=== PATIENT | male | born 1945 | race Caucasian/White ===

== ENCOUNTER 2020-05-21 20:47 | Inpatient (IN) | payer MEDICARE, OTHER ==
[~2020-05-21] VITALS: Ht 182.9 cm; Wt 86.2 kg
[2020-05-21 22:30] VITALS: BP 151/70
--- NOTE | 2020-05-21 22:30 | NUR ---
GPS ADMISSION NOTE, RECEIVED PATIENT FROM [facility]. PATIENT ARRIVED ON THIS UNIT AT 2230 VIA STRETCHER WITH 2 EMT ESCORTS. PATIENT ADMITTED ON A 5150 HOLD FOR DTS. PER HOLD PATIENT PRESENTED WITH DEPRESSION AND FEELING HOPELESS. PATIENT IS ANXIOUS, GUARDED, HAS RECENTLY STOPPED TAKING HIS MEDICATION. PATIENT IS UNABLE TO PROVIDE A VIABLE SAFE PLAN FOR CARE AT THIS TIME. PATIENT WAS UNABLE TO CONTRACT FOR SAFETY AT THAT TIME. THE 5150 WAS REVIEWED AND THE DOCUMENTATION IN THE 5150 HOLD APPEARS TO REFLECT THE PRESENTATION OF THE PATIENT. UPON FACE TO FACE ASSESSMENT PATIENT IS NOTED TO BEING HYPERVERBAL, DISHEVELED, DISORGANIZED, DEMANDING, UNCOOPERATIVE, AND NEEDS REDIRECTION. PATIENT IS CURRENTLY LYING IN BED AWAKE, HAS NO S/S OR COMPLAINTS OF PAIN. PATIENT IS DISPLAYING NO S/S OF APPARENT DISTRESS. PATIENT BREATHING IS UNLABORED WITH EQUAL RISE AND FALL OF THE CHEST. PATIENT IS ALERT AND ORIENTATED X 1 -2 ON ROOM AIR. PATIENT IS DANISH SPEAKING. PATIENT ASSISTED WITH TURING AND REPOSITIONING Q2HR AND PRN FOR COMFORT AND CIRCULATION. PATIENT HAS NO NEEDS AT THIS TIME. PATIENT DENIES SUICIDE IDEATIONS AND HOMICIDAL IDEATIONS AT THIS TIME. PATIENT REFUSED TO SIGN ANY PAPER WORK. PATIENT ADVISED OF HER HOLD AND PATIENT RIGHTS BOOKLET GIVEN. PATIENT IS UNDER THE PSYCHIATRIC CARE OF DR. JOHANSEN AND THE MEDICAL CARE OF DR QUINONEZ. PATIENT BELONGINGS WERE INVENTORIED AND CHECKED FOR CONTRABAND. ALL CONTRABAND REMOVED AND STORED IN PATIENT HALLWAY LOCKER. PATIENT ADVANCED DIRECTIVES PREFERENCE, IMMUNIZATIONS QUESTIONER, NECESSARY PAPERWORK COMPLETED. PATIENT REFUSED SKIN ASSESSMENT. PATIENT REFUSED INFLUENZA AND PNEUMONIA SHOT. PATIENT ORIENTATED TO ROOM, FLOOR, AND STAFF WITH ALL QUESTIONS ANSWERED. PATIENT EDUCATED ON THE USE OF THE CALL CERRATO. PATIENT BED SIDE RAILS ARE UP X 2 FOR SAFETY. PATIENT BED IS LOCKED, LOW AND I WILL CONTINUE TO MONITOR THIS PATIENT Q 15 MIN WITH THE HELP OF STAFF TO MAINTAIN SAFETY.
[2020-05-21] MEDS ORDERED: ACETAMINOPHEN 325 MG TABLET PO PRN (23:30)
[2020-05-21] MEDS ORDERED: MAGNESIUM HYDROXIDE 30 ML UDC PO PRN (23:30)
[2020-05-21] MEDS ORDERED: TEMAZEPAM 7.5 MG CAPSULE PO PRN (23:30)
[2020-05-21] MEDS ORDERED: MAG HYDROX/AL HYDROX/SIMETH 30 ML UDC PO PRN (23:30)
[2020-05-21] MEDS ORDERED: ALEN70TA80 PO (23:38)
[2020-05-21] MEDS ORDERED: ASPI-1169 PO (23:42)
[2020-05-21] MEDS ORDERED: HYDR25TA4 PO (23:43)
[2020-05-21] MEDS ORDERED: ICOS1CAP PO (23:45)
[2020-05-21] MEDS ORDERED: LEMB5TAB PO (23:46)
[2020-05-21] MEDS ORDERED: METO-357 PO (23:47)
[2020-05-21] MEDS ORDERED: LISI10TA29 PO (23:47)
[2020-05-21] MEDS ORDERED: POLY17PO4 PO (23:53)
[2020-05-21] MEDS ORDERED: SENN-261 PO (23:54)
[2020-05-21] MEDS ORDERED: SIMV-49 PO (23:55)
[2020-05-22] MEDS ORDERED: BLOOD SUGAR DIAGNOSTIC 1 EACH STRIP IN ONE (01:00)
[2020-05-22 08:00] VITALS: BP 162/69
[2020-05-22] MEDS: HYDROCHLOROTHIAZIDE 25 MG TABLET PO SCH (10:20)
[2020-05-22] MEDS: ASPIRIN 81 MG TAB.CHEW PO SCH (10:20)
[2020-05-22] MEDS: LISINOPRIL (10MG) 10 MG TABLET PO SCH (10:21)
[2020-05-22] MEDS: POLYETHYLENE GLYCOL 3350 17 GM POWD.PACK PO SCH (10:21)
[2020-05-22] MEDS: METOPROLOL SUCCINATE 50 MG TAB.SR.24H PO SCH (10:40)
[2020-05-22 11:09] LABS: CALCIUM, SERUM 9.6 mg/dL (8.5-10.1); CARBON DIOXIDE 29 mmol/L (21-32); CHLORIDE 99 mmol/L (98-107); CREATININE 1.4 mg/dL (0.6-1.3); GLUCOSE 88 mg/dL (74-106); POTASSIUM 4.6 mmol/L (3.5-5.1); SODIUM SERUM 137 mmol/L (136-145); UREA NITROGEN, BLOOD 20 mg/dL (7-18)
[2020-05-22 11:10] LABS: BASOPHILS % (AUTO) 0.7 % (0.0-2.0); EOSINOPHILS % (AUTO) 0.6 % (0.0-6.0); HEMATOCRIT 40 % (39-51); HEMOGLOBIN 13.6 g/dL (13.5-17.5); LYMPHOCYTES # (AUTO) 1.2 /CMM (0.8-4.8); LYMPHOCYTES % (AUTO) 18.1 % (20.0-44.0); MEAN CORPUSCULAR HGB CONC 34 g/dl (31.0-36.0); MEAN CORPUSCULAR VOLUME 89 fL (80-96); MONOCYTES # (AUTO) 0.6 /CMM (0.1-1.30); MONOCYTES % (AUTO) 8.7 % (2.0-12.0); NEUTROPHILS # (AUTO) 4.8 /CMM (1.8-8.9); NEUTROPHILS % (AUTO) 71.9 % (43.0-81.0); PLATELET COUNT (AUTO) 215 /CMM (150-450); RED BLOOD CELL COUNT(AUTO) 4.52 MIL/uL (4.5-6.0); WHITE BLOOD COUNT (AUTO) 6.7 K/uL (4.3-11.0)
[2020-05-22 11:12] LABS: CHOLESTEROL 183 mg/dL (<200); HDL CHOLESTEROL 49 mg/dL (40-60); LDL 112 mg/dL (0-99); TRIGLYCERIDES 96 mg/dL (30-150)
--- NOTE | 2020-05-22 15:35 | NUR ---
PT. SEEMS MORE COMFORTABLE AFTER BOTH THAI MD'S IN FOR VISIT.
[2020-05-22 16:00] VITALS: BP 144/65
--- NOTE | 2020-05-22 17:30 | NUR ---
pt. syriac speaking,but indicating discomfort,rn contacted pt's son and he states pt. has had no bm x 10 days.
[2020-05-22] MEDS ORDERED: SIMVASTATIN 20 MG TABLET PO SCH (18:00)
--- NOTE | 2020-05-22 18:00 | NUR ---
dr. perez called and nellie ordered.
--- NOTE | 2020-05-22 18:07 | NUR ---
son brought fish oil med in and bottle sent to pharmacy.
[2020-05-22] MEDS: SENNOSIDES 8.6 MG TABLET PO SCH (18:11)
[2020-05-22] MEDS: VASCEPA 1 GM PO SCH (20:13)
[2020-05-22 20:52] VITALS: BP 121/89
[2020-05-22] MEDS: OLANZAPINE 2.5 MG TABLET PO SCH (22:27)
--- NOTE | 2020-05-23 06:38 | NUR ---
GPS RN CLOSING NOTES: PATIENT AWAKE, A/O X1-2. PATIENT SLEPT 9 HR THIS SHIFT. NO BEHAVIORAL ISSUES THIS SHIFT. MEDICATION COMPLIANT, NO PRN MEDS GIVEN THIS SHIFT. NO S/S OF DISTRESS. RESPIRATION EVEN AND UNLABORED WITH EQUAL RISE AND FALL OF THE CHEST ON ROOM AIR. SAFETY PRECAUTION MAINTAINED, BED IN LOWEST POSITION AND LOCKED. Q15 MINUTES SAFETY ROUND CONTINUED. ALL PATIENT CARE NEEDS MET ANTICIPATED. WILL CONTINUE TO MONITOR PATIENT FOR MOOD, BEHAVIOR AND SAFETY AND ENDORSE TO AM SHIFT.
[2020-05-23 08:00] VITALS: BP 155/79
[2020-05-23] MEDS: POLYETHYLENE GLYCOL 3350 17 GM POWD.PACK PO SCH (09:08)
[2020-05-23] MEDS: HYDROCHLOROTHIAZIDE 25 MG TABLET PO SCH (09:08)
[2020-05-23] MEDS: ASPIRIN 81 MG TAB.CHEW PO SCH (09:09)
[2020-05-23] MEDS: METOPROLOL SUCCINATE 50 MG TAB.SR.24H PO SCH (09:10)
[2020-05-23] MEDS: LISINOPRIL (10MG) 10 MG TABLET PO SCH (09:10)
[2020-05-23] MEDS: VASCEPA 1 GM PO SCH ×2 (09:10→17:45)
[2020-05-23] MEDS: ALENDRONATE 70 MG TABLET PO SCH (09:10)
[2020-05-23] MEDS: AMLODIPINE BESYLATE 5 MG TABLET PO SCH (10:56)
[2020-05-23 16:00] VITALS: BP 131/58
[2020-05-23] MEDS: SENNOSIDES 8.6 MG TABLET PO SCH (17:45)
[2020-05-23 20:00] VITALS: BP 100/52
--- NOTE | 2020-05-23 20:00 | NUR ---
GPS RN OPENING NOTE: PATIENT AWAKE, A/O X2. SITTING IN CHAIR OUTSIDE ROOM IN HALLWAY. NO S/S OF DISTRESS. RESPIRATION EVEN AND UNLABORED WITH EQUAL RISE AND FALL OF THE CHEST ON ROOM AIR. SAFETY PRECAUTION IN PLACE, BED IN LOWEST POSITION AND LOCKED. Q15 MINUTES SAFETY ROUND PER PROTOCOL. WILL CONTINUE TO MONITOR PATIENT FOR MOOD, BEHAVIOR AND SAFETY. PT REPORTED HAVING YELLOWISH BROWN BM DURING DAY SHIFT PER REPORT. DENIES ABD PAIN. DENIES SI/HI.
[2020-05-23] MEDS: OLANZAPINE 2.5 MG TABLET PO SCH (20:55)
[2020-05-23] MEDS: ATORVASTATIN 10 MG TABLET PO SCH (21:31)
--- NOTE | 2020-05-23 22:30 | NUR ---
SPOKE WITH PATIENTS CARRIE CRISOSTOMO PHONE [phone]. UPDATED ON FATHERS CONDITION. QUESTIONS CONCERNS ADDRESSED. HE IS REQUESTING THAT MD CALL HIM FOR UPDATE WHEN THEY DO ROUNDS. PHONE GIVEN TO PATIENT AND PT SPOKE WITH SON FOR 15 MINUTES.
--- NOTE | 2020-05-24 07:24 | NUR ---
RN NOTES PATIENT IS AWAKE AND VERBALLY RESPONSIVE. PATIENT IS MONGOLIAN-SPEAKING, UNDERSTANDS VERY LITTLE [place]. SEEN SITTING IN CHAIR OUTSIDE ROOM IN HALLWAY, ABLE TO AMBULATE. NO S/S OF DISTRESS. BREATHING EVEN AND UNLABORED, TOLERATING ROOM AIR. SAFETY PRECAUTIONS IN PLACE: BED IN LOWEST POSITION AND LOCKED, SR UP X2, CALL LIGHT W/IN REACH. WILL CONTINUE TO MONITOR.
[2020-05-24 08:00] VITALS: BP 133/61
[2020-05-24] MEDS: ASPIRIN 81 MG TAB.CHEW PO SCH (08:36)
[2020-05-24] MEDS: HYDROCHLOROTHIAZIDE 25 MG TABLET PO SCH (08:36)
[2020-05-24] MEDS: POLYETHYLENE GLYCOL 3350 17 GM POWD.PACK PO SCH (08:37)
[2020-05-24] MEDS: AMLODIPINE BESYLATE 5 MG TABLET PO SCH (08:37)
[2020-05-24] MEDS: METOPROLOL SUCCINATE 50 MG TAB.SR.24H PO SCH (08:37)
[2020-05-24] MEDS: LISINOPRIL (10MG) 10 MG TABLET PO SCH (08:37)
[2020-05-24] MEDS: VASCEPA 1 GM PO SCH ×2 (08:47→16:49)
--- NOTE | 2020-05-24 15:51 | NUR ---
Family Contact: There is no contact information for the pts family members at this time.
[2020-05-24 16:00] VITALS: BP 130/55
--- NOTE | 2020-05-24 16:10 | NUR ---
Family Contact: SW called the pts home number ([phone]) and pts son, Cliff ([phone]), answered the phone and stated that the pt can return home at the time of discharge if he is stable.
--- NOTE | 2020-05-24 16:21 | NUR ---
Initial Discharge Plan: Pt currently resides in his home with his located at [address] [place] [address]; ([phone]). Per pt, he would like to return to his home. LATOYA spoke with the pts son, Cliff ([phone]), who stated that the pt can return. LATOYA will work with the pt and the pts MD regarding appropriate discharge planning. LATOYA will form a safe and proper discharge.
[2020-05-24] MEDS: SENNOSIDES 8.6 MG TABLET PO SCH (17:08)
[2020-05-24] MEDS: LORAZEPAM 0.5 MG TABLET PO PRN (17:09)
--- NOTE | 2020-05-24 19:15 | NUR ---
RN NOTES PATIENT CURRENTLY IN BED RESTING, ABLE TO BE AWAKENED. BREATHING EVEN AND UNLABORED, TOLERATING ROOM AIR, NOT IN ACUTE DISTRESS. CHARGE NURSE TRANSLATED EARLIER FOR PATIENT; NOTED W/ ANXIETY, PRN ATIVAN PROVIDED AND TAKEN BY PATIENT. NO COMPLAINT OF ABD PAIN/DISCOMFORT. DENIES SI/HI. SAFETY PRECS MAINTAINED. ENDORSED TO DIRECTOR SPECIALTY RN FOR YOSELIN.
[2020-05-24 20:00] VITALS: BP 131/82
[2020-05-24] MEDS: ATORVASTATIN 10 MG TABLET PO SCH (21:17)
[2020-05-24] MEDS: OLANZAPINE 2.5 MG TABLET PO SCH (21:17)
[2020-05-25 08:00] VITALS: BP 153/68
[2020-05-25] MEDS: VASCEPA 1 GM PO SCH ×2 (08:34→17:18)
[2020-05-25] MEDS: ASPIRIN 81 MG TAB.CHEW PO SCH (08:34)
[2020-05-25] MEDS: HYDROCHLOROTHIAZIDE 25 MG TABLET PO SCH (08:34)
[2020-05-25] MEDS: LISINOPRIL (10MG) 10 MG TABLET PO SCH (08:35)
[2020-05-25] MEDS: METOPROLOL SUCCINATE 50 MG TAB.SR.24H PO SCH (08:35)
[2020-05-25] MEDS: POLYETHYLENE GLYCOL 3350 17 GM POWD.PACK PO SCH (08:35)
[2020-05-25] MEDS: AMLODIPINE BESYLATE 5 MG TABLET PO SCH (08:35)
[2020-05-25] MEDS: LORAZEPAM 0.5 MG TABLET PO PRN (13:25)
[2020-05-25 16:00] VITALS: BP 117/64
--- NOTE | 2020-05-25 16:15 | NUR ---
GPS MASTER LAY OUT SPECIALIST: NOTES PT TAKEN TO SHOWER PER SON'S REQUEST, BUT PT REFUSED. CN AWARE.
[2020-05-25 16:54] LABS: CALCIUM, SERUM 9.4 mg/dL (8.5-10.1); CREATININE 1.2 mg/dL (0.6-1.3); POTASSIUM 4.8 mmol/L (3.5-5.1)
[2020-05-25] MEDS: SENNOSIDES 8.6 MG TABLET PO SCH (17:17)
--- NOTE | 2020-05-25 19:46 | NUR ---
RN NOTES, PATIENT IN BED ASLEEP BUT AROUSES TO VERBAL STIMULI, NO SOB/DISTRESS NOTED, NO DISRUPTIVE BEHAVIOR NOTED, WILL CONTINUE TO MONITOR CLOSELY.
[2020-05-25 20:24] VITALS: BP 108/55
[2020-05-25] MEDS: OLANZAPINE 2.5 MG TABLET PO SCH (21:12)
[2020-05-25] MEDS: ATORVASTATIN 10 MG TABLET PO SCH (21:12)
--- NOTE | 2020-05-26 06:46 | NUR ---
RN NOTES, PATIENT IN BED ASLEEP BUT AROUSES TO VERBAL STIMULI, NO SOB/DISTRESS NOTED, NO DISRUPTIVE BEHAVIOR NOTED THROUGHOUT THE NIGHT, ADEQUATE HOURS OF SLEEP, WILL ENDORSE CONTINUITY OF CARE TO ONCOMING NURSE.
[2020-05-26 08:00] VITALS: BP 123/90
[2020-05-26] MEDS: HYDROCHLOROTHIAZIDE 25 MG TABLET PO SCH (09:11)
[2020-05-26] MEDS: VASCEPA 1 GM PO SCH ×2 (09:11→17:23)
[2020-05-26] MEDS: LISINOPRIL (10MG) 10 MG TABLET PO SCH (09:12)
[2020-05-26] MEDS: AMLODIPINE BESYLATE 5 MG TABLET PO SCH (09:12)
[2020-05-26] MEDS: METOPROLOL SUCCINATE 50 MG TAB.SR.24H PO SCH (09:12)
[2020-05-26] MEDS: ASPIRIN 81 MG TAB.CHEW PO SCH (09:12)
[2020-05-26] MEDS: POLYETHYLENE GLYCOL 3350 17 GM POWD.PACK PO SCH (09:12)
--- NOTE | 2020-05-26 10:48 | NUR ---
SNF Referral: LATOYA faxed a referral to [facility] with attn to Susan to the fax number: [phone].
--- NOTE | 2020-05-26 12:54 | NUR ---
SNF Contact: Susan ([phone]) from [facility] contacted the SW and stated that the pt was accepted to their facility at the time of discharge.
[2020-05-26 16:00] VITALS: BP 112/59
[2020-05-26] MEDS: SENNOSIDES 8.6 MG TABLET PO SCH (17:23)
[2020-05-26 19:58] VITALS: BP 106/45
[2020-05-26] MEDS ORDERED: OLANZAPINE 2.5 MG TABLET PO SCH (22:00)
[2020-05-26] MEDS ORDERED: ATORVASTATIN 10 MG TABLET ONE (22:04)
[2020-05-26] MEDS: ATORVASTATIN 10 MG TABLET PO SCH (22:06)
--- NOTE | 2020-05-26 22:10 | NUR ---
GPS RN NOTES: AT 2199 THIS NURSE CONTACTED [facility] TO ITEM REPAIR MANAGER LIPITOR 10MG 2TABS/20MG PO ORDERED D/T UNAVAILABILITY OF SUPPLY IN GPS OMNICELL. MEDICATION PICKED UP FROM [facility] AND ADMINISTERED ORDERED AT 2205.
[2020-05-27 08:00] VITALS: BP 144/62
[2020-05-27] MEDS: ASPIRIN 81 MG TAB.CHEW PO SCH (08:49)
[2020-05-27] MEDS: POLYETHYLENE GLYCOL 3350 17 GM POWD.PACK PO SCH (08:49)
[2020-05-27] MEDS: HYDROCHLOROTHIAZIDE 25 MG TABLET PO SCH (08:50)
[2020-05-27] MEDS: AMLODIPINE BESYLATE 5 MG TABLET PO SCH (08:50)
[2020-05-27] MEDS: METOPROLOL SUCCINATE 50 MG TAB.SR.24H PO SCH (08:50)
[2020-05-27] MEDS: LISINOPRIL (10MG) 10 MG TABLET PO SCH (08:50)
[2020-05-27] MEDS: VASCEPA 1 GM PO SCH ×2 (08:52→16:31)
[2020-05-27] MEDS: LORAZEPAM 0.5 MG TABLET PO PRN ×3 (10:21→21:32)
[2020-05-27 16:00] VITALS: BP 124/54
[2020-05-27] MEDS: SENNOSIDES 8.6 MG TABLET PO SCH (16:28)
[2020-05-27] MEDS: CLOPIDOGREL BISULFATE 75 MG TABLET PO SCH (16:28)
--- NOTE | 2020-05-27 18:07 | NUR ---
PT AMBULATING IN AND OUT OF HIS ROOM.DENIES ANY HEADACHE.NO SI/HI NOTED.WILL CONTINUE TO MONITOR
[2020-05-27 20:28] VITALS: BP 91/39
[2020-05-27] MEDS: ATORVASTATIN 10 MG TABLET PO SCH (21:32)
[2020-05-27] MEDS: OLANZAPINE 2.5 MG TABLET PO SCH (21:32)
[2020-05-28 08:00] VITALS: BP 138/59
[2020-05-28] MEDS: POLYETHYLENE GLYCOL 3350 17 GM POWD.PACK PO SCH (08:38)
[2020-05-28] MEDS: CLOPIDOGREL BISULFATE 75 MG TABLET PO SCH (08:39)
[2020-05-28] MEDS: HYDROCHLOROTHIAZIDE 25 MG TABLET PO SCH (08:39)
[2020-05-28] MEDS: VASCEPA 1 GM PO SCH ×2 (08:39→17:03)
[2020-05-28] MEDS: ASPIRIN 81 MG TAB.CHEW PO SCH (08:39)
[2020-05-28] MEDS: METOPROLOL SUCCINATE 50 MG TAB.SR.24H PO SCH (08:40)
[2020-05-28] MEDS: AMLODIPINE BESYLATE 5 MG TABLET PO SCH (08:40)
[2020-05-28] MEDS: LISINOPRIL (10MG) 10 MG TABLET PO SCH (08:40)
[2020-05-28] MEDS: DIVALPROEX SODIUM 125 MG CAP.SPRINK PO SCH ×2 (13:43→21:50)
--- NOTE | 2020-05-28 14:24 | NUR ---
Family Contact: SW called the pts son, Cliff ([phone]), and informed him that the pt does not have a discharge date as of right now but the SW did secure placement at [facility]. Pts son stated that he will speak with his mother and will determine whether or not the pt will go home or to the SNF. SW stated that she would call him back on Sunday.
[2020-05-28] MEDS: LORAZEPAM 0.5 MG TABLET PO PRN ×2 (15:21→21:50)
[2020-05-28 16:00] VITALS: BP 92/94
[2020-05-28] MEDS: SENNOSIDES 8.6 MG TABLET PO SCH (17:03)
[2020-05-28 20:20] VITALS: BP 123/49
[2020-05-28] MEDS: ATORVASTATIN 10 MG TABLET PO SCH (21:50)
[2020-05-28] MEDS: OLANZAPINE 2.5 MG TABLET PO SCH (21:50)
[2020-05-29 08:00] VITALS: BP 146/65
--- NOTE | 2020-05-29 08:05 | NUR ---
PT RECEIVED AMBULATING OUT OF BED, ESTONIAN SPEAKING. PT IS CONFUSED TO WHY HE IS HERE. PT GIVEN EXPLANATION, DOES NOT APPEAR TO BE IN DISTRESS. WILL CONTINUE T0 MONITOR
[2020-05-29] MEDS: CLOPIDOGREL BISULFATE 75 MG TABLET PO SCH (08:52)
[2020-05-29] MEDS: ASPIRIN 81 MG TAB.CHEW PO SCH (08:52)
[2020-05-29] MEDS: DIVALPROEX SODIUM 125 MG CAP.SPRINK PO SCH ×2 (08:52→21:30)
[2020-05-29] MEDS: HYDROCHLOROTHIAZIDE 25 MG TABLET PO SCH (08:53)
[2020-05-29] MEDS: POLYETHYLENE GLYCOL 3350 17 GM POWD.PACK PO SCH (08:53)
[2020-05-29] MEDS: LISINOPRIL (10MG) 10 MG TABLET PO SCH (08:53)
[2020-05-29] MEDS: AMLODIPINE BESYLATE 5 MG TABLET PO SCH (08:53)
[2020-05-29] MEDS: VASCEPA 1 GM PO SCH ×2 (08:57→18:07)
[2020-05-29] MEDS: METOPROLOL SUCCINATE 50 MG TAB.SR.24H PO SCH (09:00)
--- NOTE | 2020-05-29 10:05 | NUR ---
0900 METOPROLOL NON-ADMIN. MISSING FROM [facility], PHARMACY CONTACTED, TO REFILL LATER. OTHER AM BP MEDS GIVEN
[2020-05-29] MEDS: LORAZEPAM 0.5 MG TABLET PO PRN (10:43)
[2020-05-29 16:00] VITALS: BP 105/51
[2020-05-29] MEDS: SENNOSIDES 8.6 MG TABLET PO SCH (18:08)
[2020-05-29 20:57] VITALS: BP 122/55
[2020-05-29] MEDS: ATORVASTATIN 10 MG TABLET PO SCH (21:29)
[2020-05-29] MEDS: OLANZAPINE 2.5 MG TABLET PO SCH (21:31)
[2020-05-30] MEDS: ALENDRONATE 70 MG TABLET PO SCH (07:44)
[2020-05-30 08:00] VITALS: BP 155/63
[2020-05-30] MEDS: ASPIRIN 81 MG TAB.CHEW PO SCH (08:14)
[2020-05-30] MEDS: POLYETHYLENE GLYCOL 3350 17 GM POWD.PACK PO SCH (08:14)
[2020-05-30] MEDS: AMLODIPINE BESYLATE 5 MG TABLET PO SCH (08:15)
[2020-05-30] MEDS: HYDROCHLOROTHIAZIDE 25 MG TABLET PO SCH (08:15)
[2020-05-30] MEDS: LISINOPRIL (10MG) 10 MG TABLET PO SCH (08:15)
[2020-05-30] MEDS: VENLAFAXINE XR 37.5 MG CAP.SR.24H PO SCH (08:15)
[2020-05-30] MEDS: DIVALPROEX SODIUM 125 MG CAP.SPRINK PO SCH ×2 (08:15→21:37)
[2020-05-30] MEDS: CLOPIDOGREL BISULFATE 75 MG TABLET PO SCH (08:16)
[2020-05-30] MEDS: VASCEPA 1 GM PO SCH ×2 (08:20→16:18)
[2020-05-30] MEDS: METOPROLOL SUCCINATE 50 MG TAB.SR.24H PO SCH (08:25)
[2020-05-30 16:00] VITALS: BP 106/42
[2020-05-30] MEDS: SENNOSIDES 8.6 MG TABLET PO SCH (17:05)
[2020-05-30 20:00] VITALS: BP 103/44
[2020-05-30] MEDS: OLANZAPINE 2.5 MG TABLET PO SCH (21:37)
[2020-05-30] MEDS ORDERED: ATORVASTATIN 10 MG TABLET ONE (22:11)
[2020-05-30] MEDS: ATORVASTATIN 10 MG TABLET PO SCH (22:14)
[2020-05-31 08:00] VITALS: BP_SYST 128; BP_SYST 139; BP_DIAS 57; BP_DIAS 80
[2020-05-31] MEDS: DIVALPROEX SODIUM 125 MG CAP.SPRINK PO SCH ×2 (08:37→21:20)
[2020-05-31] MEDS: ASPIRIN 81 MG TAB.CHEW PO SCH (08:37)
[2020-05-31] MEDS: VENLAFAXINE XR 37.5 MG CAP.SR.24H PO SCH (08:37)
[2020-05-31] MEDS: POLYETHYLENE GLYCOL 3350 17 GM POWD.PACK PO SCH (08:37)
[2020-05-31] MEDS: CLOPIDOGREL BISULFATE 75 MG TABLET PO SCH (08:37)
[2020-05-31] MEDS: METOPROLOL SUCCINATE 50 MG TAB.SR.24H PO SCH (08:38)
[2020-05-31] MEDS: LISINOPRIL (10MG) 10 MG TABLET PO SCH (08:38)
[2020-05-31] MEDS: HYDROCHLOROTHIAZIDE 25 MG TABLET PO SCH (08:43)
[2020-05-31] MEDS: VASCEPA 1 GM PO SCH ×2 (08:44→17:17)
[2020-05-31] MEDS: AMLODIPINE BESYLATE 5 MG TABLET PO SCH (08:44)
--- NOTE | 2020-05-31 09:00 | NUR ---
PT ANXIOUS AT TIMES DELUSIONAL REGARDING BOWELS AND BMS, PT HAVING REGULAR BMS PO INTAKE IS FAIR AT TIMES, CONFUSED. MED COMPLIANT
[2020-05-31] MEDS: LORAZEPAM 0.5 MG TABLET PO PRN (14:49)
--- NOTE | 2020-05-31 14:52 | NUR ---
RN NOTE- ANXIOUSNESS PACING AND INTRUSIVENESS CONTINUES. ATIVAN 0.5 MG GIVEN
[2020-05-31] MEDS: SENNOSIDES 8.6 MG TABLET PO SCH (17:17)
[2020-05-31 20:02] VITALS: BP 108/54
[2020-05-31] MEDS: ATORVASTATIN 10 MG TABLET PO SCH (21:22)
[2020-05-31] MEDS: OLANZAPINE 2.5 MG TABLET PO SCH (21:22)
[2020-05-31] MEDS: DONEPEZIL 5 MG TABLET PO SCH (22:31)
[2020-06-01 06:49] LABS: BASOPHILS % (AUTO) 0.8 % (0.0-2.0); EOSINOPHILS % (AUTO) 1.1 % (0.0-6.0); HEMATOCRIT 38 % (39-51); HEMOGLOBIN 13.2 g/dL (13.5-17.5); LYMPHOCYTES # (AUTO) 1.7 /CMM (0.8-4.8); LYMPHOCYTES % (AUTO) 31.7 % (20.0-44.0); MEAN CORPUSCULAR HGB CONC 34 g/dl (31.0-36.0); MEAN CORPUSCULAR VOLUME 87 fL (80-96); MONOCYTES # (AUTO) 0.6 /CMM (0.1-1.30); MONOCYTES % (AUTO) 10.5 % (2.0-12.0); NEUTROPHILS # (AUTO) 3.1 /CMM (1.8-8.9); NEUTROPHILS % (AUTO) 55.9 % (43.0-81.0); PLATELET COUNT (AUTO) 250 /CMM (150-450); RED BLOOD CELL COUNT(AUTO) 4.41 MIL/uL (4.5-6.0); WHITE BLOOD COUNT (AUTO) 5.5 K/uL (4.3-11.0)
[2020-06-01 08:00] VITALS: BP 134/75
[2020-06-01 08:12] LABS: BILIRUBIN,TOTAL 0.8 mg/dL (0.2-1.0); CALCIUM, SERUM 9.7 mg/dL (8.5-10.1); CREATININE 1.3 mg/dL (0.6-1.3); POTASSIUM 4.3 mmol/L (3.5-5.1); TOTAL PROTEIN, SERUM 7.7 g/dL (6.4-8.2)
[2020-06-01] MEDS: DIVALPROEX SODIUM 125 MG CAP.SPRINK PO SCH ×2 (09:23→21:04)
[2020-06-01] MEDS: AMLODIPINE BESYLATE 5 MG TABLET PO SCH (09:24)
[2020-06-01] MEDS: METOPROLOL SUCCINATE 50 MG TAB.SR.24H PO SCH (09:24)
[2020-06-01] MEDS: CLOPIDOGREL BISULFATE 75 MG TABLET PO SCH (09:24)
[2020-06-01] MEDS: HYDROCHLOROTHIAZIDE 25 MG TABLET PO SCH (09:25)
[2020-06-01] MEDS: ASPIRIN 81 MG TAB.CHEW PO SCH (09:25)
[2020-06-01] MEDS: VENLAFAXINE XR 37.5 MG CAP.SR.24H PO SCH (09:25)
[2020-06-01] MEDS: POLYETHYLENE GLYCOL 3350 17 GM POWD.PACK PO SCH (09:26)
[2020-06-01] MEDS: VASCEPA 1 GM PO SCH ×2 (09:30→16:27)
[2020-06-01] MEDS: LISINOPRIL (10MG) 10 MG TABLET PO SCH (09:37)
--- NOTE | 2020-06-01 13:30 | NUR ---
48 yr old female discharged [facility] in stable condition. Compliant with medicatios/cooperative with tx plan. Pt denies SI/HI and is instructed to go the nearest ER if developing SI/HI. Behaviour improved, psychiatric tx plan met, medical tx plan deferred to continual monitoring. Pt educated regarding after care plan and copy provided. Pt belongings returned. medications reconciles with psychiatrist and internal med. doctors Pt left the unit at 1330 via trasport Addendum: 06/01/20 at 1417 by DEANA GALLEGOS RN Amended: Links added. Addendum: 06/01/20 at 1421 by DEANA GALLEGOS RN accidentally documented on wrong pt-Error disregard
--- NOTE | 2020-06-01 13:58 | NUR ---
Family Contact: SW called the pts son, Cliff ([phone]), and left a voicemail that stated that the SW would like to speak about pts discharge plan.
[2020-06-01 16:00] VITALS: BP 135/65
[2020-06-01] MEDS: SENNOSIDES 8.6 MG TABLET PO SCH (16:28)
[2020-06-01 20:55] VITALS: BP 93/46
[2020-06-01] MEDS: OLANZAPINE 2.5 MG TABLET PO SCH (21:03)
[2020-06-01] MEDS: ATORVASTATIN 10 MG TABLET PO SCH (21:04)
[2020-06-01] MEDS: DONEPEZIL 5 MG TABLET PO SCH (21:04)
[2020-06-02 08:00] VITALS: BP 154/73
[2020-06-02] MEDS: VENLAFAXINE XR 37.5 MG CAP.SR.24H PO SCH (09:28)
[2020-06-02] MEDS: POLYETHYLENE GLYCOL 3350 17 GM POWD.PACK PO SCH (09:28)
[2020-06-02] MEDS: ASPIRIN 81 MG TAB.CHEW PO SCH (09:29)
[2020-06-02] MEDS: LORAZEPAM 0.5 MG TABLET PO PRN (09:29)
--- NOTE | 2020-06-02 09:30 | NUR ---
RN NOTE PATIENT ANXIOUS PACING IN THE HALLWAY ATIVAN 0.5 MG GIVEN, WILL CONTINUE MONITORING
[2020-06-02] MEDS: CLOPIDOGREL BISULFATE 75 MG TABLET PO SCH (09:31)
[2020-06-02] MEDS: DIVALPROEX SODIUM 125 MG CAP.SPRINK PO SCH ×2 (09:31→21:11)
[2020-06-02] MEDS: AMLODIPINE BESYLATE 5 MG TABLET PO SCH (09:32)
[2020-06-02] MEDS: LISINOPRIL (10MG) 10 MG TABLET PO SCH (09:33)
[2020-06-02] MEDS: METOPROLOL SUCCINATE 50 MG TAB.SR.24H PO SCH (09:33)
[2020-06-02] MEDS: HYDROCHLOROTHIAZIDE 25 MG TABLET PO SCH (09:34)
[2020-06-02] MEDS: VASCEPA 1 GM PO SCH ×2 (09:35→16:56)
--- NOTE | 2020-06-02 14:29 | NUR ---
Family Contact: LATOYA called the pts son, Cliff ([phone]), and he stated that the family would want the pt to return to their home. LATOYA stated that she will inform the MD.
[2020-06-02 16:00] VITALS: BP 121/53
[2020-06-02] MEDS: SENNOSIDES 8.6 MG TABLET PO SCH (17:00)
[2020-06-02 20:51] VITALS: BP 133/61
[2020-06-02] MEDS: ATORVASTATIN 10 MG TABLET PO SCH (21:11)
[2020-06-02] MEDS: DONEPEZIL 5 MG TABLET PO SCH (21:11)
[2020-06-02] MEDS: OLANZAPINE 2.5 MG TABLET PO SCH (21:12)
[2020-06-03 08:00] VITALS: BP 133/53
[2020-06-03] MEDS: CLOPIDOGREL BISULFATE 75 MG TABLET PO SCH (08:30)
[2020-06-03] MEDS: ASPIRIN 81 MG TAB.CHEW PO SCH (08:30)
[2020-06-03] MEDS: AMLODIPINE BESYLATE 5 MG TABLET PO SCH (08:31)
[2020-06-03] MEDS: DIVALPROEX SODIUM 125 MG CAP.SPRINK PO SCH ×2 (08:31→21:46)
[2020-06-03] MEDS: LISINOPRIL (10MG) 10 MG TABLET PO SCH (08:31)
[2020-06-03] MEDS: POLYETHYLENE GLYCOL 3350 17 GM POWD.PACK PO SCH (08:32)
[2020-06-03] MEDS: METOPROLOL SUCCINATE 50 MG TAB.SR.24H PO SCH (08:32)
[2020-06-03] MEDS: HYDROCHLOROTHIAZIDE 25 MG TABLET PO SCH (08:32)
[2020-06-03] MEDS: VENLAFAXINE XR 37.5 MG CAP.SR.24H PO SCH (08:32)
[2020-06-03] MEDS: VASCEPA 1 GM PO SCH ×2 (08:35→17:02)
--- NOTE | 2020-06-03 14:06 | NUR ---
Family Contact: SW called the pts son, Cliff ([phone]), and left a voicemail that stated that the SW would like to speak about pts discharge plan.
[2020-06-03 16:00] VITALS: BP 122/53
--- NOTE | 2020-06-03 16:23 | NUR ---
Individual Intervention: SW met with the pt at bedside and he stated that he does not feel ready for discharge at this time and wants to remain in the hospital a bit longer.
--- NOTE | 2020-06-03 16:24 | NUR ---
Family Contact: SW called the pts son, Cliff ([phone]), and left a voicemail that stated that the SW would like to speak about pts discharge plan.
--- NOTE | 2020-06-03 16:31 | NUR ---
Family Contact: Pts son, Cliff ([phone]), called the SW and stated that he wanted to speak to the doctor regarding the pts discharge plan. SW stated that she will pass along the message and stated that as of right now the pts discharge is for Sunday back home.
[2020-06-03] MEDS: SENNOSIDES 8.6 MG TABLET PO SCH (17:02)
[2020-06-03 20:36] VITALS: BP 107/45
[2020-06-03] MEDS: DONEPEZIL 5 MG TABLET PO SCH (21:46)
[2020-06-03] MEDS: OLANZAPINE 2.5 MG TABLET PO SCH (21:49)
[2020-06-03] MEDS: ATORVASTATIN 10 MG TABLET PO SCH (21:51)
[2020-06-04 07:26] LABS: EOSINOPHILS % (AUTO) 1.3 % (0.0-6.0); HEMATOCRIT 38 % (39-51); HEMOGLOBIN 13.2 g/dL (13.5-17.5); LYMPHOCYTES # (AUTO) 1.3 /CMM (0.8-4.8); LYMPHOCYTES % (AUTO) 30.1 % (20.0-44.0); MEAN CORPUSCULAR HGB CONC 35 g/dl (31.0-36.0); MEAN CORPUSCULAR VOLUME 86 fL (80-96); MONOCYTES # (AUTO) 0.4 /CMM (0.1-1.30); MONOCYTES % (AUTO) 9.2 % (2.0-12.0); NEUTROPHILS # (AUTO) 2.6 /CMM (1.8-8.9); NEUTROPHILS % (AUTO) 58.4 % (43.0-81.0); PLATELET COUNT (AUTO) 263 /CMM (150-450); WHITE BLOOD COUNT (AUTO) 4.5 K/uL (4.3-11.0)
[2020-06-04 07:52] LABS: ALBUMIN 3.8 g/dL (3.4-5.0); BILIRUBIN,TOTAL 0.5 mg/dL (0.2-1.0); CALCIUM, SERUM 9.3 mg/dL (8.5-10.1); CREATININE 1.3 mg/dL (0.6-1.3); POTASSIUM 3.9 mmol/L (3.5-5.1); TOTAL PROTEIN, SERUM 7.5 g/dL (6.4-8.2)
[2020-06-04 08:00] VITALS: BP 121/59
[2020-06-04] MEDS: POLYETHYLENE GLYCOL 3350 17 GM POWD.PACK PO SCH (08:30)
[2020-06-04] MEDS: CLOPIDOGREL BISULFATE 75 MG TABLET PO SCH (08:30)
[2020-06-04] MEDS: DIVALPROEX SODIUM 125 MG CAP.SPRINK PO SCH ×2 (08:30→21:04)
[2020-06-04] MEDS: ASPIRIN 81 MG TAB.CHEW PO SCH (08:30)
[2020-06-04] MEDS: VASCEPA 1 GM PO SCH ×2 (08:31→16:14)
[2020-06-04] MEDS: VENLAFAXINE XR 37.5 MG CAP.SR.24H PO SCH (08:31)
[2020-06-04] MEDS: AMLODIPINE BESYLATE 5 MG TABLET PO SCH (08:31)
[2020-06-04] MEDS: HYDROCHLOROTHIAZIDE 25 MG TABLET PO SCH (08:31)
[2020-06-04] MEDS: METOPROLOL SUCCINATE 50 MG TAB.SR.24H PO SCH (08:32)
[2020-06-04] MEDS: LISINOPRIL (10MG) 10 MG TABLET PO SCH (08:32)
[2020-06-04 16:00] VITALS: BP 111/50
[2020-06-04] MEDS: SENNOSIDES 8.6 MG TABLET PO SCH (17:23)
[2020-06-04 20:26] VITALS: BP 113/49
[2020-06-04] MEDS: ATORVASTATIN 10 MG TABLET PO SCH (21:04)
[2020-06-04] MEDS: OLANZAPINE 2.5 MG TABLET PO SCH (21:04)
[2020-06-04] MEDS: DONEPEZIL 5 MG TABLET PO SCH (21:04)
[2020-06-05 08:00] VITALS: BP 144/51
[2020-06-05] MEDS: POLYETHYLENE GLYCOL 3350 17 GM POWD.PACK PO SCH (09:00)
[2020-06-05] MEDS: LISINOPRIL (10MG) 10 MG TABLET PO SCH (09:54)
[2020-06-05] MEDS: DIVALPROEX SODIUM 125 MG CAP.SPRINK PO SCH ×2 (09:54→22:01)
[2020-06-05] MEDS: ASPIRIN 81 MG TAB.CHEW PO SCH (09:55)
[2020-06-05] MEDS: HYDROCHLOROTHIAZIDE 25 MG TABLET PO SCH (09:55)
[2020-06-05] MEDS: CLOPIDOGREL BISULFATE 75 MG TABLET PO SCH (09:55)
[2020-06-05] MEDS: VENLAFAXINE XR 37.5 MG CAP.SR.24H PO SCH (09:55)
[2020-06-05] MEDS: METOPROLOL SUCCINATE 50 MG TAB.SR.24H PO SCH (09:56)
[2020-06-05] MEDS: VASCEPA 1 GM PO SCH ×2 (10:00→18:13)
--- NOTE | 2020-06-05 12:45 | NUR ---
ambling about unit,no complaints offered.
[2020-06-05] MEDS: AMLODIPINE BESYLATE 5 MG TABLET PO SCH (14:23)
[2020-06-05 16:00] VITALS: BP 119/55
[2020-06-05] MEDS: SENNOSIDES 8.6 MG TABLET PO SCH (18:13)
[2020-06-05 20:12] VITALS: BP 109/41
[2020-06-05] MEDS: ATORVASTATIN 10 MG TABLET PO SCH (22:02)
[2020-06-05] MEDS: OLANZAPINE 2.5 MG TABLET PO SCH (22:02)
[2020-06-05] MEDS: DONEPEZIL 5 MG TABLET PO SCH (22:25)
--- NOTE | 2020-06-06 06:57 | NUR ---
GPS RN CLOSING NOTES: PATIENT AWAKE, ALERT AND ORIENTED X2, AMBULATING IN HALLWAY. CALM AND COOPERATIVE. SLEPT 7HR THIS SHIFT. NO S/S OF DISTRESS. RESPIRATION EVEN AND UNLABORED WITH EQUAL RISE AND FALL OF THE CHEST ON ROOM AIR. SAFETY PRECAUTION MAINTAINED, Q15 MINUTES SAFETY ROUND CONTINUED. ALL PATIENT CARE NEEDS HAVE BEEN MET AT THIS TIME. WILL CONTINUE TO MONITOR PATIENT FOR MOOD, BEHAVIOR AND SAFETY AND ENDORSE TO AM SHIFT.
[2020-06-06 08:00] VITALS: BP 123/58
[2020-06-06] MEDS: POLYETHYLENE GLYCOL 3350 17 GM POWD.PACK PO SCH (08:37)
[2020-06-06] MEDS: DIVALPROEX SODIUM 125 MG CAP.SPRINK PO SCH ×2 (08:38→20:37)
[2020-06-06] MEDS: LISINOPRIL (10MG) 10 MG TABLET PO SCH (08:38)
[2020-06-06] MEDS: CLOPIDOGREL BISULFATE 75 MG TABLET PO SCH (08:38)
[2020-06-06] MEDS: ASPIRIN 81 MG TAB.CHEW PO SCH (08:38)
[2020-06-06] MEDS: AMLODIPINE BESYLATE 5 MG TABLET PO SCH (08:38)
[2020-06-06] MEDS: VENLAFAXINE XR 37.5 MG CAP.SR.24H PO SCH (08:38)
[2020-06-06] MEDS: HYDROCHLOROTHIAZIDE 25 MG TABLET PO SCH (08:39)
[2020-06-06] MEDS: METOPROLOL SUCCINATE 50 MG TAB.SR.24H PO SCH (08:39)
[2020-06-06] MEDS: ALENDRONATE 70 MG TABLET PO SCH (08:43)
[2020-06-06] MEDS: VASCEPA 1 GM PO SCH ×2 (08:43→17:05)
--- NOTE | 2020-06-06 09:00 | NUR ---
RN NOTE- PT ALERT PACES HALLS PO INTAKE GOOD MED COMPLIANT CONFUSED BLUNTED AFFECT
[2020-06-06] MEDS: SENNOSIDES 8.6 MG TABLET PO SCH (17:59)
[2020-06-06 20:39] VITALS: BP 136/62
[2020-06-06] MEDS: ATORVASTATIN 10 MG TABLET PO SCH (21:33)
[2020-06-06] MEDS: DONEPEZIL 5 MG TABLET PO SCH (21:33)
[2020-06-06] MEDS: OLANZAPINE 2.5 MG TABLET PO SCH (21:33)
--- NOTE | 2020-06-07 06:28 | NUR ---
GPS RN CLOSING NOTES: PATIENT AWAKE, ALERT AND ORIENTED X2, CALM AND COOPERATIVE. PATIENT SLEPT 9HR THIS SHIFT. WEEKLY SKIN ASSESSMENT DONE/SKIN INTACT. PATIENT SCHEDULED TO DC TODAY TO [facility] VIA [facility] AT 1200. NO S/S OF DISTRESS. RESPIRATION EVEN AND UNLABORED WITH EQUAL RISE AND FALL OF THE CHEST ON ROOM AIR. SAFETY PRECAUTION MAINTAINED, Q15 MINUTES SAFETY ROUND CONTINUED. ALL PATIENT CARE NEEDS HAVE BEEN MET AT THIS TIME. WILL CONTINUE TO MONITOR PATIENT FOR MOOD, BEHAVIOR AND SAFETY AND ENDORSE TO AM SHIFT.
[2020-06-07 08:00] VITALS: BP 164/83
[2020-06-07] MEDS: DIVALPROEX SODIUM 125 MG CAP.SPRINK PO SCH (08:21)
[2020-06-07] MEDS: VASCEPA 1 GM PO SCH (08:21)
[2020-06-07] MEDS: CLOPIDOGREL BISULFATE 75 MG TABLET PO SCH (08:22)
--- NOTE | 2020-06-07 08:22 | NUR ---
Family Contact: SW called the pts son, Cliff ([phone]), and left a voicemail that stated that the SW would like to speak about pts discharge placement for today.
[2020-06-07] MEDS: LISINOPRIL (10MG) 10 MG TABLET PO SCH (08:23)
[2020-06-07] MEDS: HYDROCHLOROTHIAZIDE 25 MG TABLET PO SCH (08:23)
[2020-06-07] MEDS: VENLAFAXINE XR 37.5 MG CAP.SR.24H PO SCH (08:24)
[2020-06-07] MEDS: ASPIRIN 81 MG TAB.CHEW PO SCH (08:24)
[2020-06-07] MEDS: AMLODIPINE BESYLATE 5 MG TABLET PO SCH (08:24)
[2020-06-07 08:25] VITALS: BP 164/83
[2020-06-07] MEDS: POLYETHYLENE GLYCOL 3350 17 GM POWD.PACK PO SCH (08:25)
[2020-06-07] MEDS: METOPROLOL SUCCINATE 50 MG TAB.SR.24H PO SCH (08:25)
--- NOTE | 2020-06-07 08:37 | NUR ---
Family Contact: SW called the pts son, Cliff ([phone]), and informed him that the pt will be discharged today and that the SW needs to be aware of where to send the pt. Pts son stated that he spoke to the pt himself who stated that he wanted to return home. Pts son stated that he is aware that he can send the pt to a facility within 30 days of his discharge if the discharge home becomes inappropriate. SW stated that she will arrange for the pt to be sent home.
--- NOTE | 2020-06-07 12:29 | NUR ---
GPS MACHINE STAMPER NOTES PATIENT IS ALERT AND ORIENTED X2-3, THAI/FARSI-SPEAKING, ABLE TO MAKE SIMPLE NEEDS KNOWN. VERBALLY RESPONSIVE. AMBULATES W/O ASSISTIVE DEVICE, STEADY GAIT AND ABLE TO FEED SELF W/ SET-UP ASSISTANCE. DENIES SUICIDAL/HOMICIDAL IDEATION; DENIES VISUAL/AUDITORY HALLUCINATION AT THIS TIME. COMPLIANT W/ MEDS. FOR DISCHARGE TO HOME TODAY; MEDICATIONS RECONCILED. DISCHARGE INSTRUCTIONS AND EDUCATION PROVIDED TO PATIENT AND SON JUAN F. PATIENT UNABLE TO SIGN FORMS; BELONGINGS CHECKED BY [facility], AND ACCOUNTED FOR TO BE SENT HOME WITH PATIENT. NO SKIN ISSUES NOTED. NAME ARMBAND REMOVED. PATIENT WAS ACCOMPANIED TO THE LOBBY VIA WHEELCHAIR BY [facility] AND PICKED UP BY SON VIA PRIVATE CAR. CHARGE NURSE AND MD AWARE OF DISCHARGE.
--- NOTE | 2020-06-07 13:08 | NUR ---
Discharge Note: Pt will be discharged home to [address] [place], [place] [id number]; ([phone]). Pts son Cliff ([phone]), will come crab picker the pt at 12pm. Upon discharge, the pt appears to be in a dysphoric mood and presents with a distressed affect. Pt appears to be alert and oriented x4 (time, place, self, and situation). Pt denies both suicidal and homicidal ideation as well as auditory and visual hallucinations. Pt appears to be well groomed and appropriately dressed. Pt appears to be ambulatory with an unsteady gait. Pt will follow up with his psychiatrist, Dr. Morales, located at [address] [facility] [address] [address]; . SW called the pts psychiatrist directly and left a voicemail on his personal mailbox stating that the pt will need follow up post hospital discharge. Pt will follow up with his tomato paste maker, Dr. Schroeder, located at ([phone]). The multidisciplinary exit care form was done, printed, signed, and given to the patient.
[2020-06-07] MEDS ORDERED: DIVALPROEX SODIUM 250 MG TABLET.DR PO SCH (22:00)
[2020-06-08] MEDS ORDERED: DIVALPROEX SODIUM 250 MG TABLET.DR PO SCH (09:00)
== END 2020-06-07 12:20 | disposition home or self-care (01) | DRG 885 ==
LOC: GPS 22:20
PROVIDERS: ADMIT Psychiatry & Neurology Psychosomatic Medicine; ATTEND Nurse Practitioner Acute Care
DX: F25.0 Schizoaffective disorder, bipolar type (principal); F01.50 Vascular dementia, unspecified severity, without behavioral disturbance, psychotic disturbance, mood disturbance, and anxiety; N17.0 Acute kidney failure with tubular necrosis; N18.9 Chronic kidney disease, unspecified; I10 Essential (primary) hypertension; I25.10 Atherosclerotic heart disease of native coronary artery without angina pectoris; Z86.16 Personal history of COVID-19; F29 Unspecified psychosis not due to a substance or known physiological condition; Z73.6 Limitation of activities due to disability; E78.5 Hyperlipidemia, unspecified; I12.9 Hypertensive chronic kidney disease with stage 1 through stage 4 chronic kidney disease, or unspecified chronic kidney disease; Z91.14 Patient's other noncompliance with medication regimen; M81.0 Age-related osteoporosis without current pathological fracture; Z79.82 Long term (current) use of aspirin; Z79.899 Other long term (current) drug therapy; Z79.83 Long term (current) use of bisphosphonates; F39 Unspecified mood [affective] disorder; G20 Parkinson's disease; F02.80 Dementia in other diseases classified elsewhere, unspecified severity, without behavioral disturbance, psychotic disturbance, mood disturbance, and anxiety; N13.9 Obstructive and reflux uropathy, unspecified
CPT/HCPCS: 36415; 70450-TC; 74018; 80048-TC; 80053-TC; 80061-TC; 80164-TC; 85025-TC